=== PATIENT | female | born 1940 | race Caucasian/White ===

== ENCOUNTER 2017-09-27 10:03 | Emergency (ER) | payer MEDICARE ==
[~2017-09-27] VITALS: Ht 160 cm; Wt 77.3 kg
[~2017-09-27 10:03] MED LIST: ALENDRONATE SOD70 MG PO; CELEXA20 M1 PO; CELEXA20 MG PO; GENTAMICIN15 ML/BTL OP; HYZAAR1 TA1 PO; MELOXICAM7.5 MG PO; NORCO1 TA1 PO; OMEPRAZOLE20 M1 PO; PRILOSEC20 MG/CAP PO; SIMVASTATIN40 MG PO
[2017-09-27] MEDS ORDERED: ALENDRONATE70 MG PO (10:19)
[2017-09-27] MEDS ORDERED: CALCIUM 600 +600 MG PO (10:19)
[2017-09-27] MEDS ORDERED: PREVACID30 M1 PO (10:20)
[2017-09-27] MEDS ORDERED: GLUCOSAMINE1500 M1 PO (10:21)
[2017-09-27 11:33] LABS: URINE BILIRUBIN - DIPSTICK NEGATIVE (NEGATIVE); URINE BLOOD DIPSTICK NEGATIVE (NEGATIVE); URINE COLOR YELLOW; URINE GLUCOSE - DIPSTICK NEGATIVE (NEGATIVE); URINE KETONE NEGATIVE (NEGATIVE); URINE NITRITE - DIPSTICK NEGATIVE (Negative); URINE PROTEIN - DIPSTICK NEGATIVE (NEG-TRACE); URINE SPECIFIC GRAVITY 1.025; URINE UROBILINOGEN - DIPSTICK 0.2 E.U./dL (0.2)
[2017-09-27 11:34] LABS: URINE CLARITY CLEAR; URINE LEUK ESTERASE TRACE (NEGATIVE)
[2017-09-27] MEDS ORDERED: MOTRIN800 MG PO (12:20)
[2017-09-27] MEDS ORDERED: TRAMADOL HCL50 MG PO (12:20)
[2017-09-27 12:31] VITALS: BP 140/70
== END 2017-09-27 12:30 | disposition home or self-care (01) ==
LOC: ED 10:03
PROVIDERS: Family Medicine
DX: S22.42XA Multiple fractures of ribs, left side, initial encounter for closed fracture (principal); W11.XXXA Fall on and from ladder, initial encounter; Y93.E9 Activity, other interior property and clothing maintenance; Y92.008 Other place in unspecified non-institutional (private) residence as the place of occurrence of the external cause

== ENCOUNTER 2017-10-07 13:35 | Emergency (ER) | payer MEDICARE, OTHER ==
[~2017-10-07] VITALS: Ht 160 cm; Wt 100.0 kg
[~2017-10-07 13:35] MED LIST changes: +ALENDRONATE70 MG PO; +CALCIUM 600 +600 MG PO; +GLUCOSAMINE1500 M1 PO; +MOTRIN800 MG PO; +PREVACID30 M1 PO; +TRAMADOL HCL50 MG PO
[2017-10-07 14:37] LABS: ALBUMIN 4.3 g/dL (3.2-5.0); BILIRUBIN, TOTAL 0.3 mg/dL (0.0-1.4); CREATININE 1.3 mg/dL (0.5-1.0); POTASSIUM 4.3 mmol/l (3.5-5.1); TOTAL PROTEIN 7.2 g/dL (6.3-8.2)
[2017-10-07 14:41] LABS: HEMATOCRIT 36.4 % (37.0-47.0); IMMATURE GRANULOCYTES 0.3 % (0.0-1.0); MEAN CELL VOLUME 94.8 fL CALC (80.0-100.0); MEAN CORPUSCULAR HGB 31.3 pG CALC (26.0-32.0); NEUT# 4.36 thou/uL (2.00-7.15); RED BLOOD COUNT 3.84 mill/uL (4.20-5.60); RED CELL DISTRI WIDTH 12.5 % (11.5-15.5)
[2017-10-07] MEDS ORDERED: TRAMADOL HYDROC50 MG PO (15:14)
[2017-10-07] MEDS ORDERED: FLEXERIL PO (15:14)
[2017-10-07] MEDS ORDERED: NAPROXEN DR500 MG PO (15:14)
[2017-10-07 15:19] VITALS: BP 155/85
== END 2017-10-07 15:32 | disposition home or self-care (01) ==
LOC: ED 13:35
PROVIDERS: Emergency Medicine
DX: R60.0 Localized edema (principal); I10 Essential (primary) hypertension; M54.5 Low back pain; E78.00 Pure hypercholesterolemia, unspecified; R00.1 Bradycardia, unspecified

== ENCOUNTER 2018-06-17 08:41 | Emergency (ER) | payer MEDICARE, OTHER ==
[~2018-06-17] VITALS: Ht 160 cm; Wt 80.0 kg
[~2018-06-17 08:41] MED LIST changes: +FLEXERIL PO; +NAPROXEN DR500 MG PO; +TRAMADOL HYDROC50 MG PO
[2018-06-17 09:28] LABS: HEMATOCRIT 42.1 % (37.0-47.0); IMMATURE GRANULOCYTES 0.4 % (0.0-5.0); MEAN CELL VOLUME 92.5 fL CALC (80.0-100.0); MEAN CORPUSCULAR HGB CONC 33.5 g/L CALC (32.0-36.0); NEUT# 2.32 thou/uL (2.00-7.15); RED BLOOD COUNT 4.55 mill/uL (4.20-5.60); RED CELL DISTRI WIDTH 12.6 % (11.5-15.5)
[2018-06-17 09:29] LABS: HEMOGLOBIN 14.1 g/dl (12.0-16.0)
[2018-06-17 09:33] LABS: ALBUMIN 4.6 g/dL (3.2-5.0); BILIRUBIN, TOTAL 0.7 mg/dL (0.0-1.4); CREATININE 1.1 mg/dL (0.5-1.0); POTASSIUM 3.9 mmol/l (3.5-5.1); TOTAL PROTEIN 7.3 g/dL (6.3-8.2)
[2018-06-17 10:52] LABS: URINE BILIRUBIN - DIPSTICK SMALL (NEGATIVE); URINE BLOOD DIPSTICK TRACE-LYSED (NEGATIVE); URINE COLOR DK. YELLOW; URINE GLUCOSE - DIPSTICK NEGATIVE (NEGATIVE); URINE KETONE 15 mg/dL (NEGATIVE); URINE LEUK ESTERASE TRACE (NEGATIVE); URINE NITRITE - DIPSTICK NEGATIVE (Negative); URINE PROTEIN - DIPSTICK 30 mg/dL (NEG-TRACE); URINE SPECIFIC GRAVITY 1.025; URINE UROBILINOGEN - DIPSTICK 0.2 E.U./dL (0.2)
[2018-06-17 10:53] LABS: URINE EPITHELIAL CELLS MODERATE EPI/hpf (0-FEW); URINE MUCUS MODERATE hpf (NONE-FEW); URINE RBC 0-2 RBC/hpf (0-5); URINE WBC 0-2 WBC/hpf (0-5)
[2018-06-17] MEDS ORDERED: BENTYL10 MG PO (10:58)
[2018-06-17] MEDS ORDERED: CIPROFLOXACN500 MG PO (10:58)
[2018-06-17 11:02] VITALS: BP 151/70
== END 2018-06-17 11:20 | disposition home or self-care (01) ==
LOC: ED 08:41
PROVIDERS: Emergency Medicine
DX: K52.9 Noninfective gastroenteritis and colitis, unspecified (principal); R19.7 Diarrhea, unspecified; R11.2 Nausea with vomiting, unspecified; R10.33 Periumbilical pain